=== PATIENT | female | born 1945 | race Caucasian/White ===

== ENCOUNTER 2020-10-18 07:10 | Inpatient (IN) ==
[2020-10-18] MEDS ORDERED: Clindamycin 900 MG/50 ML 900 MG/50 ML IV.SOLN IVPB ONE (07:32)
[2020-10-18] MEDS ORDERED: Lidocaine -MPF 4% 5 ML AMPUL ONE (07:36)
[2020-10-18] MEDS ORDERED: Lidocaine -MPF 2% 2 ML VIAL ONE (07:36)
[2020-10-18] MEDS ORDERED: *HR* Succinylcholine 200 MG/10 ML VIAL IVP ONE (07:36)
[2020-10-18] MEDS ORDERED: Ondansetron 4 MG/2 ML VIAL ONE (07:36)
[2020-10-18] MEDS ORDERED: *HR* FentaNYL (PF) 100 MCG/2 ML VIAL ONE (07:36)
[2020-10-18] MEDS ORDERED: *HR* Propofol 200 MG/20 ML VIAL IVP ONE (07:36)
[2020-10-18] MEDS ORDERED: *HR* Rocuronium Bromide 50 MG/5 ML VIAL ONE (07:36)
[2020-10-18] MEDS ORDERED: Albuterol 2.5 MG/3 ML NEBULIZER IH PRN (07:42)
[2020-10-18] MEDS ORDERED: *HR* OxyCODONE Immed Rel 5 MG TABLET PO PRN (07:42)
[2020-10-18] MEDS ORDERED: Acetaminophen IV 1,000 MG/100 ML BAG IVPB ONE (07:42)
[2020-10-18] MEDS ORDERED: Ondansetron 4 MG/2 ML VIAL IVP PRN (07:42)
[2020-10-18] MEDS ORDERED: Famotidine 20 MG/2 ML VIAL IVP ONE (07:42)
[2020-10-18] MEDS ORDERED: Ketorolac 15 MG/ML VIAL IVP PRN (07:42)
[2020-10-18] MEDS ORDERED: Ringers Solution, Lactated 1,000 ML IVC SCH (08:15)
[2020-10-18] MEDS ORDERED: cefOXitin 1,000 MG, Sodium Chloride IRRigation 1,000 ML IR ONE (09:00)
[2020-10-18] MEDS ORDERED: Sugammadex Sodium 200 MG/2 ML VIAL IV ONE (09:09)
[2020-10-18] MEDS ORDERED: *HR* HYDROMORPHONE 2 MG/ML VIAL ONE (09:34)
[2020-10-18] MEDS: *HR* HYDROmorphone PF 0.5 MG/0.5 ML SYRINGE IVP PRN ×2 (10:45→11:23)
[2020-10-18] MEDS ORDERED: Naloxone 0.4 MG/ML INJ IVP PRN (15:25)
[2020-10-18] MEDS: Ketorolac 15 MG/ML VIAL IVP SCH ×2 (15:36→16:21)
[2020-10-18] MEDS: *HR* Heparin 5,000 UNIT/ML VIAL SQ SCH (15:36)
[2020-10-18] MEDS: *HR* OxyCODONE Oral Soln 5 MG/5 ML UD.LIQ PO PRN ×2 (15:36→19:48)
[2020-10-18] MEDS: 0.9 % Sodium Chloride 1,000 ML IVC SCH (15:36)
[2020-10-18] MEDS: Ondansetron 4 MG/2 ML VIAL IVP PRN (15:53)
[2020-10-18] MEDS: Famotidine 20 MG TABLET PO SCH (19:48)
[2020-10-18] MEDS: Docusate Oral Soln 100 MG/10 ML UDC PO SCH (19:48)
[2020-10-19] MEDS: *HR* Heparin 5,000 UNIT/ML VIAL SQ SCH ×4 (00:01→21:13)
[2020-10-19] MEDS: Ketorolac 15 MG/ML VIAL IVP SCH ×4 (00:02→17:54)
[2020-10-19 04:55] LABS: Hematocrit 40.3 % (35.3-44.9); Hemoglobin 13.3 g/dL (11.5-15.4); Mean Corpuscular Hemoglobin 30.6 pg (28.0-33.3); Mean Corpuscular Volume 92.6 fL (83.0-100.0); Platelet Count 216 K/mcL (140-400); Red Blood Count 4.35 M/mcL (3.82-4.97); White Blood Count 14.7 K/mcL (4.3-11.1)
[2020-10-19 05:13] LABS: % Iron Saturation 12 % (15-50); BUN/Creatinine Ratio 19 (6-26); Blood Urea Nitrogen 11 mg/dL (8-23); Calcium 8.1 mg/dL (8.6-10.3); Carbon Dioxide 25 mEq/L (23-29); Chloride 107 mEq/L (98-107); Glucose 116 mg/dL (70-105); Iron 32 mcg/dL (50-170); Magnesium 1.3 mg/dL (1.6-2.6); Osmolality,Calculated 286 (280-300); Potassium 3.5 mEq/L (3.5-5.1); Sodium 138 mEq/L (136-145); Transferrin 190 mg/dL (203-362); eGFR For African Americans > 60 (> 60); eGFR For Non-African Americans > 60 (> 60)
[2020-10-19] MEDS: 0.9 % Sodium Chloride 1,000 ML IVC SCH ×2 (05:20→14:15)
[2020-10-19] MEDS: *HR* OxyCODONE Oral Soln 5 MG/5 ML UD.LIQ PO PRN ×2 (05:26→11:41)
[2020-10-19] MEDS: Docusate Oral Soln 100 MG/10 ML UDC PO SCH ×2 (07:51→21:13)
[2020-10-19] MEDS: Famotidine 20 MG TABLET PO SCH (07:52)
[2020-10-19] MEDS: amLODIPine 5 MG TABLET PO SCH (07:52)
[2020-10-19] MEDS ORDERED: Potassium Chloride Elixir 20 MEQ/15 ML UDC PO ONE (08:31)
[2020-10-19] MEDS: Ondansetron 4 MG/2 ML VIAL IVP PRN (11:42)
[2020-10-19] MEDS: Pantoprazole 40 MG VIAL IVP SCH ×2 (14:15→17:54)
[2020-10-19] MEDS: Metoclopramide 10 MG/2 ML VIAL IVP SCH ×2 (14:15→17:55)
[2020-10-20] MEDS: Metoclopramide 10 MG/2 ML VIAL IVP SCH ×2 (00:03→06:24)
[2020-10-20] MEDS: Ketorolac 15 MG/ML VIAL IVP SCH ×5 (00:03→23:58)
[2020-10-20] MEDS: Pantoprazole 40 MG VIAL IVP SCH ×2 (06:24→17:19)
[2020-10-20] MEDS: *HR* Heparin 5,000 UNIT/ML VIAL SQ SCH ×3 (06:24→20:37)
[2020-10-20] MEDS: 0.9 % Sodium Chloride 1,000 ML IVC SCH (06:29)
[2020-10-20] MEDS: *HR* OxyCODONE Oral Soln 5 MG/5 ML UD.LIQ PO PRN (07:39)
[2020-10-20] MEDS: amLODIPine 5 MG TABLET PO SCH (07:39)
[2020-10-20] MEDS: Docusate Oral Soln 100 MG/10 ML UDC PO SCH ×2 (07:42→20:37)
[2020-10-20 12:16] LABS: BUN/Creatinine Ratio 16 (6-26); Blood Urea Nitrogen 9 mg/dL (8-23); Calcium 8.6 mg/dL (8.6-10.3); Carbon Dioxide 26 mEq/L (23-29); Chloride 106 mEq/L (98-107); Glucose 104 mg/dL (70-105); Magnesium 1.9 mg/dL (1.6-2.6); Osmolality,Calculated 289 (280-300); Sodium 140 mEq/L (136-145); eGFR For African Americans > 60 (> 60); eGFR For Non-African Americans > 60 (> 60)
[2020-10-21 03:45] LABS: Basophils % 0.2 %; Eosinophils # 0.1 K/mcL (0.0-0.6); Eosinophils % 0.8 %; Hematocrit 36.8 % (35.3-44.9); Hemoglobin 12.7 g/dL (11.5-15.4); Immature Granulocytes % 0.2 % (0-4); Lymphocytes % 22.5 %; Mean Corpuscular HGB Conc 34.5 g/dL (31.6-35.5); Mean Corpuscular Hemoglobin 31.1 pg (28.0-33.3); Mean Corpuscular Volume 90.2 fL (83.0-100.0); Mean Platelet Volume 9.8 fL (9.4-12.4); Monocytes # 0.8 K/mcL (0.0-1.3); Platelet Count 185 K/mcL (140-400); Red Blood Count 4.08 M/mcL (3.82-4.97); Red Cell Distribution Width 12.1 % (11.5-14.5); Segmented Neutrophils % 67.3 %
[2020-10-21 04:01] LABS: BUN/Creatinine Ratio 17 (6-26); Blood Urea Nitrogen 8 mg/dL (8-23); Calcium 8.2 mg/dL (8.6-10.3); Carbon Dioxide 28 mEq/L (23-29); Chloride 107 mEq/L (98-107); Glucose 97 mg/dL (70-105); Magnesium 1.7 mg/dL (1.6-2.6); Osmolality,Calculated 290 (280-300); Potassium 2.8 mEq/L (3.5-5.1); Sodium 141 mEq/L (136-145); eGFR For African Americans > 60 (> 60); eGFR For Non-African Americans > 60 (> 60)
[2020-10-21] MEDS: Pantoprazole 40 MG VIAL IVP SCH (06:29)
[2020-10-21] MEDS: Ketorolac 15 MG/ML VIAL IVP SCH ×3 (06:29→17:48)
[2020-10-21] MEDS: *HR* Heparin 5,000 UNIT/ML VIAL SQ SCH ×3 (06:30→21:03)
[2020-10-21] MEDS: amLODIPine 5 MG TABLET PO SCH (08:27)
[2020-10-22] MEDS: Ketorolac 15 MG/ML VIAL IVP SCH ×3 (00:05→11:17)
[2020-10-22 01:57] LABS: BUN/Creatinine Ratio 15 (6-26); Blood Urea Nitrogen 7 mg/dL (8-23); Calcium 8.4 mg/dL (8.6-10.3); Carbon Dioxide 28 mEq/L (23-29); Chloride 108 mEq/L (98-107); Glucose 101 mg/dL (70-105); Magnesium 1.5 mg/dL (1.6-2.6); Osmolality,Calculated 290 (280-300); Potassium 3.1 mEq/L (3.5-5.1); Sodium 141 mEq/L (136-145); eGFR For African Americans > 60 (> 60); eGFR For Non-African Americans > 60 (> 60)
[2020-10-22] MEDS: *HR* Heparin 5,000 UNIT/ML VIAL SQ SCH (06:11)
[2020-10-22] MEDS: amLODIPine 5 MG TABLET PO SCH (08:16)
[2020-10-22 11:23] VITALS: BP 166/96
== END 2020-10-22 12:27 | disposition home or self-care (01) | DRG 328 ==
LOC: SAMDAY 07:10 → 2NNU 15:24
PROVIDERS: ADMIT Thoracic Surgery (Cardiothoracic Vascular Surgery); ATTEND Thoracic Surgery (Cardiothoracic Vascular Surgery)